=== PATIENT | female | born 1960 | race African-American/Black ===

== ENCOUNTER → 2017-08-14 | Outpatient (CLI) | payer OTHER ==
[~2017-08-14] VITALS: Ht 167.6 cm; Wt 125.6 kg
[~2017-08-14] MED LIST: AMITRIPTYLINE H10 M3 PO; ATENOLOL 100MG100 MG PO; CYMBALTA30 MG PO; FLEXERIL PO; HARVONI 90-4001 EACH PO; HYDROCODON-ACE1 EAC5 PO; HYDROCODONE-AP1 EAC6 PO; LISINOPRIL10 MG PO; LITE COAT ASPI325 MG PO; MOBIC7.5 MG PO; TRIAMTERENE-HC1 EAC3 PO; XANAX 0.25 MG0.25 MG PO
--- NOTE | ~2017-08-14 | HPC ---
[facility] [place] [address] PAIN MANAGEMENT CONSULTATION Name: ALFRED METZ [id number] Admission: 08/14/17 Attend Phys: Diana Jhaveri MD Discharge: Date of : 64 Report #: [id number] THIS REPORT FOR: //name// CC: JOSHUA Jhaveri DATE OF SERVICE: 08/14/2017 CHIEF COMPLAINT: Right hip and leg pain. HISTORY OF PRESENT ILLNESS: The patient is a 56-year-old female who has been referred to the pain clinic for evaluation of pain, which is described as burning, tingling, pulling and painful radiating down into her right leg. She notes that the pain is worse with walking and standing. Pain improves with sitting and resting. She describes it as continuous, steady, constant, burning, shooting, cramping, aching, pulling, throbbing, pounding and sharp and rates it as a 9/10. She has not had surgery in the past. 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 She states that her blood studies are okay and that she is not having any problems with platelets. She notes that her pain has worsened over the past 2 months. She is told that she has some narrowing in her low back. This is seen on an MRI. She denies any significant bowel or bladder dysfunction because of this. ALLERGIES: SHRIMP, PENICILLIN, AND SULFA. MEDICATIONS: Hydrocodone 5/325, Cymbalta 30 mg daily, Xanax 0.25 mg daily, lisinopril 10 mg daily, triamterene/hydrochlorothiazide 75/50, Flexeril 10 mg t.i.d., Tenormin 100 mg daily. Unable to tolerate nonsteroidal anti-inflammatory secondary to increased creatinine. No use of Tylenol secondary to hepatitis C. Gabapentin caused swelling in the hands. PAST MEDICAL HISTORY: Hepatitis C, hyperlipidemia, hypertension, thrombotic thrombocytopenia purpura status post splenectomy, liver disease, joint disease/arthritis. PAST SURGICAL HISTORY: Splenectomy for thrombotic thrombocytopenic purpura 30 years ago. REVIEW OF SYSTEMS: Generally good health, some problems with constipation, depression, insomnia, otherwise unremarkable. 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 Denies use of alcoholic beverages other than on occasion. Does smoke cigarettes and smoked off and on since age 37. [facility] [address] [place] [address] PAIN MANAGEMENT CONSULTATION Name: ALFRED METZ Room #: REG [facility]#: [id number] Admission: 08/14/17 Attend Phys: Diana Jhaveri MD Discharge: Date of : 64 Report #: [id number] FAMILY HISTORY: Mother has diabetes, heart failure, heart attack at age 62, hypertension. Father, diabetes and hypertension at age 62, heart disease, diabetes. Diabetes in her brother. Hypertension and a seizure in brother. PHYSICAL EXAMINATION: Blood pressure 156/104, pulse 79, respiratory rate 16, room air saturation 97%. Height 167 cm, weight 125 kilograms. BMI is 44. The patient has pain and discomfort in the lower portion of her back with pain radiating down the right hip, right leg and right buttocks. She has a positive straight leg raise. Notes cramping, burning, shooting, aching pain and rates it as 9/10. She notes problems with walking and exacerbation of her pain upon standing. LABORATORY DATA: MRI of the lumbar spine dated 06/28/2017 reveals 5 mm grade 1 anterolisthesis at L4-L5 with additional degenerative changes. Moderate left and mild right neural foramina and mild central canal narrowing. Multilevel degenerative disk with facet disease, most prominent at L5-S1 with severe left and moderate right neural foraminal stenosis. RECOMMENDATIONS: We will proceed with an epidural steroid injection. Risks and benefits of an epidural steroid injection were discussed. Possible complications were reviewed. The patient elects to proceed. PROCEDURE NOTE: The patient was placed in the prone position. Her back was sterilely prepped with Betadine solution at L4-L5 and 0.25% bupivacaine was infiltrated. A 17-gauge Tuohy needle with loss of resistance technique was used to gain access to the epidural space. A total of 80 mg Depo-Medrol, 40 mg triamcinolone and 2 mL of 0.25% bupivacaine was injected. The patient tolerated the procedure well. Her pain decreased to 2 at the time of discharge. She will follow up in the future as needed. We would like to thank you for letting us participate in her care. We hope she continues to improve By: 0837 0014 Diana Jhaveri MD /[facility]
[2017-08-14 10:59] VITALS: BP 156/104
== END | disposition home or self-care (01) ==
LOC: PAIN 07:25
DX: M54.16 Radiculopathy, lumbar region (principal); Z68.41 Body mass index [BMI] 40.0-44.9, adult; Z87.891 Personal history of nicotine dependence; E78.5 Hyperlipidemia, unspecified; I10 Essential (primary) hypertension; M19.90 Unspecified osteoarthritis, unspecified site; M31.1 Thrombotic microangiopathy; Z98.890 Other specified postprocedural states

== ENCOUNTER → 2017-08-28 | Outpatient (CLI) | payer OTHER ==
[~2017-08-28] VITALS: Ht 167.6 cm; Wt 129.7 kg
[~2017-08-28] MED LIST changes: +METHADONE HCL 110 M1 PO
--- NOTE | ~2017-08-28 | HPC ---
[facility] [address] [place] [address] PAIN MANAGEMENT CONSULTATION Name: ALFRED METZ Room #: REG [facility]#: [id number] Admission: 08/28/17 Attend Phys: Diana Jhaveri MD Discharge: Date of : 64 Report #: [id number] THIS REPORT FOR: //name// CC: JOSHUA Jhaveri DATE OF SERVICE: 08/28/2017 FOLLOWUP COMPLAINT: Pain in the lower back and down into the back of the leg, had some muscle spasms. FOLLOWUP HISTORY: The patient is a 56-year-old female who has been seen in the pain clinic because of lumbar radiculopathy. She has undergone an epidural steroid injection because of pain and discomfort radiating down into the right leg lateral side of the leg and down into the area of her foot. She rates her pain as a 10+. She notes that the pain continues to be quite problematic. Ambulation is problematic. She has noted pain continues to be problematic over the last 3 months. She describes it as burning, shooting, aching, cramping, throbbing pounding, and sharp. Pain is worsened by walking and standing. Sitting can be helpful. Sometimes rest is what eliminates the pain. PHYSICAL EXAMINATION: Blood pressure 160/104, respiratory rate 22, pulse 76, saturations 100. The patient has pain and discomfort radiating down into the right leg, lateral portion of her buttocks and down lateral thigh involving the L4-L5 distribution. IMPRESSION: Lumbar radiculopathy. RECOMMENDATIONS: We discussed treatment options with the patient. Risks and benefits of an epidural steroid injection were reviewed. Possible complications were discussed. The patient elects to proceed with an epidural steroid injection. Risks and benefits were again reviewed and the patient agrees to proceed. PROCEDURE NOTE: The patient was placed in the prone position. Fluoroscopy was used to identify the L4-L5 interspace. This area had been sterilely prepped with Betadine and infiltrated with 0.25% bupivacaine. Total of 80 mg of Depo-Medrol, 40 mg of triamcinolone and 2 mL of 0.25% bupivacaine was injected. The patient tolerated the procedure well. There were no complications. Her pain decreased to 0 at the time of discharge. She will follow up in the future as needed. [address] [address] PAIN MANAGEMENT CONSULTATION Name: ALFRED METZ Room #: REG [facility] [place]#: [id number] Admission: 08/28/17 Attend Phys: Diana Jhaveri MD Discharge: Date of : 64 Report #: [id number] We would like to thank you for letting us participate in her care. We hope she continues to improve. By: 1359 0110 Diana Jhaveri MD /PMT
--- NOTE | ~2017-08-28 | HPC ---
[facility] [place] [address] [address] PAIN MANAGEMENT CONSULTATION Name: ALFRED METZ [facility] [id number] Admission: 08/28/17 Attend Phys: Diana Jhaveri MD Discharge: Date of : 64 Report #: [id number] THIS REPORT FOR: //name// CC: JOSHUA Jhaveri DATE OF SERVICE: 08/28/2017 FOLLOWUP COMPLAINT: Here for treatment, pain still going down the right leg. FOLLOWUP HISTORY: The patient is a 56-year-old female who has been seen in the pain clinic because of lumbar radiculopathy. She underwent an epidural steroid injection at the last visit. She noted some improvement, but her pain continues to be problematic. She notes that after prolonged sitting at her desk, she is experiencing muscle spasms, having pain radiating down into her leg, which can be quite problematic. She rates it as a 10+ today. She has had no complications from the last injection. She finds that hydrocodone, Elavil and meloxicam are somewhat helpful, but pain continues to be problematic. She finds that BC powders are helpful with the pain. PHYSICAL EXAMINATION: Blood pressure 145/101, respiratory rate 18, room air saturation is 100, respiratory rate 16. The patient has pain and discomfort radiating down into the L5-S1 distribution of her right leg. RECOMMENDATION: We discussed the treatment options. Risks and benefits of an epidural steroid injection were again reviewed. Possible complications were discussed. The patient elects to proceed with another injection. PROCEDURE NOTE: The patient was placed in the prone position. Her back was sterilely prepped with a Betadine solution. 0.25% bupivacaine was infiltrated. A 17-gauge Tuohy with loss of resistance technique was used to gain access to the epidural space. There was no CSF, heme or paresthesia. Total of 80 mg of Depo-Medrol, 40 mg triamcinolone and 2 mL of 0.25% bupivacaine was injected. The patient's pain decreased to 0 at the time of discharge. She will follow up in the future as needed. We would like to thank you for letting us participate in her care. The patient will be given methadone 10 mg 1 p.o. every day to help with pain. She finds it very difficult to sit and had to miss work one day this week because the pain was so intense. By: 1354 0104 Diana Jhaveri MD /[place]
[2017-08-28 12:34] VITALS: BP 160/104
== END | disposition home or self-care (01) ==
LOC: PAIN 07:10
DX: M54.16 Radiculopathy, lumbar region (principal); G89.29 Other chronic pain; F17.210 Nicotine dependence, cigarettes, uncomplicated; Z88.0 Allergy status to penicillin; Z88.2 Allergy status to sulfonamides; Z79.82 Long term (current) use of aspirin; Z79.899 Other long term (current) drug therapy; Z98.890 Other specified postprocedural states

== ENCOUNTER → 2017-09-06 | Outpatient (CLI) | payer OTHER ==
[~2017-09-06] VITALS: Ht 167.6 cm; Wt 127.0 kg
[~2017-09-06] MED LIST changes: +ALEVE220 MG PO
--- NOTE | ~2017-09-06 | HPC ---
[facility] [place] [address] [place] [address] PAIN MANAGEMENT CONSULTATION Name: ALFRED METZ Room #: REG [facility].#: [id number] Admission: 09/06/17 Attend Phys: Diana Jhaveri MD Discharge: Date of : 64 Report #: [id number] THIS REPORT FOR: //name// CC: Alivia Jhaveri DATE OF SERVICE: 10/29/2017 FOLLOWUP COMPLAINT: Continued pain in the lower back with pain radiating down into the right leg. HISTORY OF PRESENT ILLNESS: The patient is a 56-year-old female who has been followed in the pain clinic because of lumbar radiculopathy. She continues to have pain and discomfort, which she describes as quite problematic radiating down into her right leg. She notes some aching, numbness, weakness in this area and rates her pain as a 10. She has undergone epidural steroid injections in the past and gleaned some benefit from it, but continues to find that the pain is still quite problematic. Walks with an antalgic gait and has pain in the lateral portion of her buttock and pain radiating down to the L5-S1 distribution today. IMPRESSION: Lumbar radiculopathy, L5-S1 distribution, per her description today. RECOMMENDATIONS: We discussed treatment options with the patient. Risks and benefits of the procedure were again reviewed. They were but are not limited to infection, increased muscle soreness, headache, bleeding, nerve damage. The patient elects to proceed. PROCEDURE NOTE: The patient was placed in the prone position. Fluoroscopy was used to identify the L5-S1 area. This area had been sterilely prepped with Betadine and infiltrated with 0.25% bupivacaine. Total of 80 mg Depo-Medrol, 40 mg triamcinolone and 2 mL of 0.25% bupivacaine was injected. A total of 14 seconds fluoroscopy time was used. The patient tolerated the procedure well. She was taken to the recovery room where she rested until she was able to be discharged without problem. The patient will be given a trial of methadone for the next month to note its efficacy in helping to decrease her pain and discomfort. Rates her pain as 0 at the time of departure. <ELECTRONICALLY SIGNED> By: Diana Jhaveri MD 10/31/17 0945 1402 1833 Diana Jhaveri MD /[facility]
[2017-09-06 10:51] VITALS: BP 145/101
== END | disposition home or self-care (01) ==
LOC: PAIN 08:18
DX: M54.16 Radiculopathy, lumbar region (principal); F17.210 Nicotine dependence, cigarettes, uncomplicated

== ENCOUNTER → 2017-10-31 | Outpatient (CLI) | payer OTHER ==
[~2017-10-31] VITALS: Ht 167.6 cm; Wt 127.5 kg
--- NOTE | ~2017-10-31 | HPC ---
[facility] [place] [address] PAIN MANAGEMENT CONSULTATION Name: ALFRED METZ [facility] [id number] Admission: 10/31/17 Attend Phys: Everette Castellano DO Discharge: Date of : 64 Report #: [id number] THIS REPORT FOR: //name// CC: PANCHO Castellano The patient is a pleasant 56-year-old female, had been treated by Dr. Tobin Jhaveri for lumbar radiculopathy and axial back pain. He had a series of epidural injections with nominal efficacy. He was referred to Dr. Pancho Huynh's office, saw Ally Padgett. She did send the patient back with a specific request for: 1. L4-L5 bilateral facet joint injections. 2. Right L4 selective nerve root block. The patient returns to pain clinic today. I saw her on 10/21/2017. We did bilateral L4-L5 facet joint injection under fluoroscopy. It is important to note the patient reported absolute pain relief following this injection. Pain was 0 on discharge that lasted about an hour. Symptoms did come back. Today, she is frustrated and tearful. She notes she simply cannot go with ongoing pain. She has pain across the low back with paresthesia in the right leg. Curiously, even the tingling in the right leg was improved with the bilateral facet joint injection. Physical exam is unchanged today, subjective pain score of 4-5 on a VAS. She is using a walker to get around due to insecurity sitting on the right leg, though it has not given out. Lower extremity strength is diminished, but symmetric. Does have some pain across the low back, exacerbated with rotating and side bending. Straight leg raise is equivocal on the right. ASSESSMENT: Symptomatic lumbar radiculopathy, axial back pain, a definite component of lumbar spondylosis. RECOMMENDATION: We will perform the second requested procedure, right selective nerve root block today. We will do this without benefit of steroid. PROCEDURE: Right L4 selective nerve root block. PROCEDURE NOTE: After written informed consent was obtained, the patient was taken to fluoroscopy suite, placed in prone position with sterile prep and drape, skin was raised. A 22-gauge stylet needle was placed from a right paramedian approach to contact the superior aspect of the right L4-L5 neural foramen. AP and lateral projections showed needle immediately outside of the foramen. No contrast was used due to IODINE CONTRAST ALLERGY, but AP and lateral [address] [address] PAIN MANAGEMENT CONSULTATION Name: ALFRED METZ Room #: REG [facility]#: [id number] Admission: 10/31/17 Attend Phys: Everette Castellano DO Discharge: Date of : 64 Report #: [id number] projections inferred good needle placement. 1 mL of 1.5% preservative-free bupivacaine with 1:200,000 epinephrine was injected. The patient was monitored for an appropriate period of time, discharged in good and stable condition. She had nominal change in her symptoms. We will refer the patient back to Dr. Huynh's office. It appears that a component of pain is mediated from the L4-L5 facets. Does have an ongoing radicular component in the right leg. May benefit from L4-L5 fusion (? ). Thank you for allowing me to participate in the patient's care. By: 0635 1004 Everette Castellano DO /nt
[2017-10-31 15:22] VITALS: BP 155/97
== END | disposition home or self-care (01) ==
LOC: PAIN 07:19
DX: M47.26 Other spondylosis with radiculopathy, lumbar region (principal); F17.200 Nicotine dependence, unspecified, uncomplicated; Z98.890 Other specified postprocedural states; Z88.0 Allergy status to penicillin; Z88.2 Allergy status to sulfonamides; Z79.899 Other long term (current) drug therapy

== ENCOUNTER → 2019-04-09 | Outpatient (CLI) | payer OTHER ==
[~2019-04-09] MED LIST changes: +NORCO 5-325 TA1 EACH PO
== END ==
LOC: RAD 13:33
DX: Z12.31 Encounter for screening mammogram for malignant neoplasm of breast (principal)

== ENCOUNTER 2019-05-20 06:47 | Emergency (ER) | payer OTHER ==
[~2019-05-20] VITALS: Ht 167.6 cm; Wt 113.4 kg
[2019-05-20 06:50] VITALS: BP 125/65
[2019-05-20] MEDS ORDERED: KEFLEX500 M1 PO (07:53)
== END 2019-05-20 07:52 | disposition home or self-care (01) ==
LOC: ER 06:47
DX: L03.116 Cellulitis of left lower limb (principal); L53.9 Erythematous condition, unspecified; F17.210 Nicotine dependence, cigarettes, uncomplicated; Z88.0 Allergy status to penicillin; Z91.013 Allergy to seafood; Z88.2 Allergy status to sulfonamides; Z90.81 Acquired absence of spleen

== ENCOUNTER → 2019-07-27 | Outpatient (CLI) | payer OTHER ==
[~2019-07-27] MED LIST changes: +KEFLEX500 M1 PO
== END ==
LOC: MRI 06:53
DX: M43.16 Spondylolisthesis, lumbar region (principal); M47.816 Spondylosis without myelopathy or radiculopathy, lumbar region; M47.817 Spondylosis without myelopathy or radiculopathy, lumbosacral region; M48.04 Spinal stenosis, thoracic region; M51.24 Other intervertebral disc displacement, thoracic region; M51.34 Other intervertebral disc degeneration, thoracic region; M48.062 Spinal stenosis, lumbar region with neurogenic claudication; M46.06 Spinal enthesopathy, lumbar region; M51.27 Other intervertebral disc displacement, lumbosacral region

== ENCOUNTER 2019-12-28 07:39 | Emergency (ER) | payer OTHER ==
[~2019-12-28] VITALS: Ht 167.6 cm; Wt 126.1 kg
[2019-12-28 08:17] VITALS: BP 127/74
[2019-12-28] MEDS ORDERED: FLONASE 0.05%50 MCG NARES (08:17)
== END 2019-12-28 08:17 | disposition home or self-care (01) ==
LOC: ER 07:39
DX: J02.9 Acute pharyngitis, unspecified (principal); R09.81 Nasal congestion; I10 Essential (primary) hypertension; I25.2 Old myocardial infarction; F17.210 Nicotine dependence, cigarettes, uncomplicated; Z86.73 Personal history of transient ischemic attack (TIA), and cerebral infarction without residual deficits; Z90.81 Acquired absence of spleen; Z88.2 Allergy status to sulfonamides; Z88.0 Allergy status to penicillin; Z91.018 Allergy to other foods

== ENCOUNTER → 2020-05-04 | Outpatient (CLI) | payer OTHER ==
[~2020-05-04] MED LIST changes: +FLONASE 0.05%50 MCG NARES
== END ==
LOC: RAD 09:53
PROVIDERS: ATTEND Family Medicine
DX: Z12.31 Encounter for screening mammogram for malignant neoplasm of breast (principal)

== ENCOUNTER → 2020-05-11 | Outpatient (CLI) | payer OTHER | LOC: ULTRA 07:23 | DX: N60.01 Solitary cyst of right breast (principal); R92.2 Inconclusive mammogram ==

== ENCOUNTER → 2020-08-03 | Outpatient (CLI) | payer OTHER ==
[2020-08-03 08:33] LABS: HEMOGLOBIN 13.2 gm/dL (12.0-15.0); MCH 29.8 pg (26.0-34.0); MCHC 32.3 g/dL (28.0-37.0); MCV 92.3 fL (80.0-100.0); RBC 4.43 mil/uL (4.20-5.00); RDW 14.3 % (10.5-14.5); WBC 13.5 thou/uL (4.0-11.0)
[2020-08-03 08:54] LABS: ALBUMIN 3.4 g/dL (3.4-5.0); ANION GAP 9 mmol/L (7-16); BUN 22 mg/dL (7-18); CALCIUM 9.2 mg/dL (8.5-10.1); CHLORIDE 105 mmol/L (98-107); CHOLESTEROL 127 mg/dL (<200); CO2 27 mmol/L (21-32); CREATININE 1.3 mg/dL (0.6-1.0); GLUCOSE 136 mg/dL (74-106); HDL CHOLESTEROL 42 mg/dL (>40); LDL CHOLESTEROL 73 mg/dL (<100); POTASSIUM 4.8 mmol/L (3.5-5.1); SGOT 12 U/L (15-37); SGPT 28 U/L (30-65); SODIUM 141 mmol/L (136-145); TOTAL BILIRUBIN 0.4 mg/dL (0.2-1.0); TOTAL PROTEIN 6.9 g/dL (6.4-8.2); TRIGLYCERIDE 61 mg/dL (<150); VLDL 12 mg/dL (<40)
[2020-08-04 04:07] LABS: GLYCOHEMOGLOBIN (HGB A1C) 5.8 % (4.8-5.6)
== END ==
LOC: LABMALL 07:01
PROVIDERS: ATTEND Family Medicine
DX: E78.5 Hyperlipidemia, unspecified (principal)

== ENCOUNTER → 2020-09-24 | Outpatient (CLI) | payer OTHER ==
[~2020-09-24] MED LIST changes: +ASA81BEC PO; +CARVEDILOL25 MG PO; +FUROSEMIDE 20 M20 MG PO; +HYDRALAZINE 5050 MG PO; +KLOR-CON M1010 MEQ PO; +LIPITOR 40 MG T40 M1 PO; +LISINOPRIL40 MG PO; +NORVASC5 MG PO; +PANTOPRAZOLE SO20 MG PO; +PLAVIX 75 MG TA75 MG PO; +SPIRONOLACTONE25 MG PO; +TYLENOL ARTHRI650 MG PO; +VITAMIN D21250 MC1 PO
== END ==
LOC: LAB 09-23 14:34
PROVIDERS: ATTEND Student in an Organized Health Care Education/Training Program
DX: Z20.828 Contact with and (suspected) exposure to other viral communicable diseases (principal)

== ENCOUNTER 2020-09-28 07:42 | Inpatient (IN) | payer OTHER ==
[~2020-09-28] VITALS: Ht 167.6 cm; Wt 134.7 kg
[2020-09-28 08:27] LABS: HEMATOCRIT 45.2 % (37.0-47.0); HEMOGLOBIN 14.5 gm/dL (12.0-15.0); MCH 30.2 pg (26.0-34.0); MCHC 32.2 g/dL (28.0-37.0); MCV 93.7 fL (80.0-100.0); RBC 4.82 mil/uL (4.20-5.00); RDW 14.5 % (10.5-14.5); WBC 17.4 thou/uL (4.0-11.0)
[2020-09-28 08:38] VITALS: BP 147/88
[2020-09-28 09:10] LABS: ALBUMIN 3.5 g/dL (3.4-5.0); CALCIUM 9.2 mg/dL (8.5-10.1); CREATININE 1.4 mg/dL (0.6-1.0); POTASSIUM 3.2 mmol/L (3.5-5.1); TOTAL BILIRUBIN 0.5 mg/dL (0.2-1.0); TOTAL PROTEIN 7.2 g/dL (6.4-8.2)
--- NOTE | 2020-09-28 14:38 | EKG ---
[facility] [address] ELECTROCARDIOGRAM REPORT Name: ALFRED METZ Room #: 150-3 ADM IN M.R.#: [id number] Admission: 09/28/20 Attend Phys: Walter Givens MD Discharge: Date of : 64 Report #: [id number] THIS REPORT FOR: cc: Susanna Menon MD, Margaret A. 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 : 1960 Requested By: Walter Givens Order Number: [id number] MD: Sawyer Marte Measurements Intervals [place] Rate: 67 P: 71 PA: 64 QRS: 20 QRSD: 88 T: 10 QT: 404 QTc: 427 Interpretive Statements Sinus rhythm Short PA interval Low voltage, precordial leads Baseline wander in lead(s) I,II,aVR No previous ECG available for comparison Electronically Signed On 09-28-2020 14:37:50 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
[2020-09-28 15:50] VITALS: BP 149/80
[2020-09-28 16:30] VITALS: BP 139/76
[2020-09-28 19:34] VITALS: BP 135/83
--- NOTE | 2020-09-28 19:46 | NUR ---
Admitted from ER, s/p gastric bypass; transferred to bed safely. A+Ox4. On room air. Vital signs stable. On telemetry; no complains and signs of chest pain, crushing sensation and heaviness. Om nothing per orem- pt informed and aware, mouth swabs provided. No nausea, no vomiting and no abdominal pain noted. With 4 lap sites with dermabond; C/D/I, no bleeding and drainage noted. Assisted in ADLs. With dickerson in place; draining well; output measured and recorded accordingly. With SL at R arm- 1/2NS at 125cc/hr, infusing well. With CALISTA hose and SCDs on. With son at bedside- update given. Admission assessment, history and education done; admission forms signed at OR. On blood sugar monitoring, taken and recorded while on NPO. Pt able to walk around the hallway 4x using walker and gait belt, standby assist; no complains of pain made. Night RN informed pt to ambulate q2 while awake on the day of surgery. To continue monitoring patient.
[2020-09-29 00:47] VITALS: BP 121/76
--- NOTE | 2020-09-29 03:38 | NUR ---
ASSUMED PT CARE AROUND 1930. AXOX4. PLEASANT. AMBULATED AROUND UNIT WELL. PEDROZA INTACT. VSS. NO S/S ACUTE DISTRESS NOTED OR REPORTED AT THIS TIME. WILL CONT TO MONITOR FOR ANY CHANGES IN CONDITION.
[2020-09-29 04:06] LABS: GLYCOHEMOGLOBIN (HGB A1C) 5.4 % (4.8-5.6)
[2020-09-29 05:41] VITALS: BP 125/50
[2020-09-29 06:01] LABS: HEMATOCRIT 40.6 % (37.0-47.0); HEMOGLOBIN 12.9 gm/dL (12.0-15.0); MCH 30.3 pg (26.0-34.0); MCHC 31.7 g/dL (28.0-37.0); MCV 95.6 fL (80.0-100.0); RBC 4.25 mil/uL (4.20-5.00); RDW 14.9 % (10.5-14.5); WBC 27.6 thou/uL (4.0-11.0)
[2020-09-29 06:13] LABS: ALBUMIN 2.9 g/dL (3.4-5.0); CALCIUM 8.2 mg/dL (8.5-10.1); CREATININE 1.3 mg/dL (0.6-1.0); POTASSIUM 3.6 mmol/L (3.5-5.1); TOTAL BILIRUBIN 0.4 mg/dL (0.2-1.0); TOTAL PROTEIN 6.2 g/dL (6.4-8.2)
--- NOTE | 2020-09-29 11:23 | NUR ---
ASSUMED CARE AT 0700 THIS MORNING. PT. SITTING UP IN HER BED. SHE IS DENYING PAIN AT THIS TIME. ASSESSMENT WAS UNREMARKABLE. SCD IS ON. SHE AMBLUATED THIS MORNING. SHE HAS A TELE MONITORY SHOWING NSR. SHE HAS A PEDROZA. IT IS PATENT. TODAY SHE HAS A CLEAR LIQUID DIET. SHE IS PLEASANT AND COOPERATIVE WITH STAFF. SHE HAS NOT REQUESTED A PRN PAIN MEDICATION AT THIS TIME.
[2020-09-29 12:56] VITALS: BP 118/77
[2020-09-29 12:57] VITALS: BP 114/65
[2020-09-29 17:18] VITALS: BP 130/78
[2020-09-29 19:26] VITALS: BP 125/80
[2020-09-30 03:57] VITALS: BP 136/85
--- NOTE | 2020-09-30 05:40 | NUR ---
AXOX4. PLEASANT. CALLS APPROPRIATELY FOR HELP. VSS. NO S/S ACUTE DISTRESS NOTED OR REPORTED AT THIS TIME. WILL CONT TO MONITOR FOR ANY CHANGES IN CONDITION.
[2020-09-30 07:31] VITALS: BP 135/92
[2020-09-30 13:39] LABS: HEMATOCRIT 40.7 % (37.0-47.0); HEMOGLOBIN 12.9 gm/dL (12.0-15.0); MCH 30.2 pg (26.0-34.0); MCHC 31.8 g/dL (28.0-37.0); MCV 94.9 fL (80.0-100.0); RBC 4.28 mil/uL (4.20-5.00); RDW 14.4 % (10.5-14.5); WBC 23.9 thou/uL (4.0-11.0)
[2020-09-30 13:57] LABS: ALBUMIN 2.6 g/dL (3.4-5.0); CALCIUM 8.7 mg/dL (8.5-10.1); CREATININE 1.1 mg/dL (0.6-1.0); PHOSPHORUS 2.6 mg/dL (2.5-4.9); POTASSIUM 4.2 mmol/L (3.5-5.1)
[2020-09-30 15:15] VITALS: BP 143/85
[2020-09-30 20:01] VITALS: BP 147/91
--- NOTE | 2020-10-01 04:09 | NUR ---
ELEVATED BP NOTED. 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 NO S/S ACUTE DISTRESS NOTED OR REPORTED AT THIS TIME. WILL CONT TO MONITOR FOR ANY CHANGES IN CONDITION.
[2020-10-01 08:08] VITALS: BP 129/83
--- NOTE | 2020-10-01 11:04 | NUR ---
Received awake on bed. Due medications given as prescribed, able to swallow meds w/o difficulty. On room air. Vital signs stable. On telemetry; no complains of chest pain, crushing sensation and heaviness. On gastric sleeve diet- tolerating well; no nausea, no vomiting and no abdominal pain noted. Assisted in ADLs. Falls bundle in place. Complained of pain, due PRN pain meds given as prescribed. With SL at R FA- intact and flushing well. Encouraged and assisted in ambulating; using walker and gait belt; falls bundle in place. Possible discharge today, a/w physician's rounds- pt updated. To continue monitoring patient.
[2020-10-01 12:31] VITALS: BP 129/83
[2020-10-01 13:00] VITALS: BP 131/72
== END 2020-10-01 14:24 | disposition home or self-care (01) | DRG 336 ==
LOC: TBA 07:42 → PRE 11:40 → 4W 15:38
PROVIDERS: Surgery; ADMIT Surgery; ATTEND Surgery
PROC: 0DNW4ZZ Release Peritoneum, Percutaneous Endoscopic Approach (ICD-10-PCS; principal; 2020-09-28)
PROC: 0DJ08ZZ Inspection of Upper Intestinal Tract, Via Natural or Artificial Opening Endoscopic (ICD-10-PCS; principal; 2020-09-28)
DX: K66.0 Peritoneal adhesions (postprocedural) (postinfection) (principal); Z68.42 Body mass index [BMI] 45.0-49.9, adult; E66.01 Morbid (severe) obesity due to excess calories; Z88.0 Allergy status to penicillin; Z88.2 Allergy status to sulfonamides; Z88.8 Allergy status to other drugs, medicaments and biological substances; Z79.899 Other long term (current) drug therapy
CPT/HCPCS: 10045; 10047; 50010; 50101; 50222; 50386; 50455; 50555; 50558; 50739; 50740; 51489; 52265; 52266; 53307; 54022; 54118; 56462; 56525; 56526; 56531; 57092; 62110; 62900; 70005

== ENCOUNTER → 2021-02-13 | Outpatient (CLI) | payer OTHER ==
[2021-02-13 08:47] LABS: ABSOLUTE NEUTROPHILS 8.5 thou/uL (1.4-8.2); BASOPHILS 1.3 % (0.0-2.0); EOSINOPHILS 0.3 % (0.0-3.0); HEMATOCRIT 45.7 % (37.0-47.0); HEMOGLOBIN 14.5 gm/dL (12.0-15.0); LYMPHOCYTES 24.8 % (24.0-44.0); MCH 29.3 pg (26.0-34.0); MCHC 31.7 g/dL (28.0-37.0); MCV 92.4 fL (80.0-100.0); MONOCYTES 9.6 % (1.0-8.0); PLATELET COUNT 280 thou/uL (150-400); RBC 4.94 mil/uL (4.20-5.00); RDW 14.7 % (10.5-14.5); WBC 13.2 thou/uL (4.0-11.0)
[2021-02-13 09:02] LABS: % SATURATION 33 % (20-39); IRON 104 ug/dL (50-170); TIBC 312 ug/dL (250-450)
[2021-02-13 09:04] LABS: ALBUMIN 3.4 g/dL (3.4-5.0); ANION GAP 9 mmol/L (7-16); BUN 14 mg/dL (7-18); CALCIUM 9.2 mg/dL (8.5-10.1); CHLORIDE 109 mmol/L (98-107); CHOLESTEROL 114 mg/dL (<200); CO2 26 mmol/L (21-32); CREATININE 1.1 mg/dL (0.6-1.0); GLUCOSE 127 mg/dL (74-106); HDL CHOLESTEROL 38 mg/dL (>40); LDL CHOLESTEROL 57 mg/dL (<100); POTASSIUM 3.7 mmol/L (3.5-5.1); SGOT 16 U/L (15-37); SGPT 32 U/L (30-65); SODIUM 144 mmol/L (136-145); TOTAL BILIRUBIN 0.6 mg/dL (0.2-1.0); TOTAL PROTEIN 6.5 g/dL (6.4-8.2); TRIGLYCERIDE 99 mg/dL (<150); VLDL 20 mg/dL (<40)
[2021-02-13 10:03] LABS: FOLIC ACID 13.8 ng/mL (8.6-58.9)
[2021-02-13 23:06] LABS: GLYCOHEMOGLOBIN (HGB A1C) 6.2 % (4.8-5.6)
== END ==
LOC: LAB 07:57
PROVIDERS: ATTEND Surgery
DX: Z98.84 Bariatric surgery status (principal)

== ENCOUNTER → 2021-05-30 | Outpatient (CLI) | payer OTHER | LOC: RAD 10:25 | PROVIDERS: ATTEND Family Medicine | DX: Z12.31 Encounter for screening mammogram for malignant neoplasm of breast (principal) ==

== ENCOUNTER → 2021-10-30 | Outpatient (CLI) | payer OTHER ==
[2021-10-30 09:00] LABS: ABSOLUTE NEUTROPHILS 6.7 thou/uL (1.4-8.2); BASOPHILS 0.6 % (0.0-2.0); EOSINOPHILS 1.1 % (0.0-3.0); HEMATOCRIT 43.6 % (37.0-47.0); HEMOGLOBIN 13.7 gm/dL (12.0-15.0); LYMPHOCYTES 29.1 % (24.0-44.0); MCH 30.1 pg (26.0-34.0); MCHC 31.4 g/dL (28.0-37.0); MCV 95.6 fL (80.0-100.0); MONOCYTES 12.6 % (1.0-8.0); PLATELET COUNT 266 thou/uL (150-400); POLYS 56.6 % (36.0-66.0); RBC 4.56 mil/uL (4.20-5.00); RDW 14.1 % (10.5-14.5); WBC 11.8 thou/uL (4.0-11.0)
[2021-10-30 09:18] LABS: % SATURATION 36 % (20-39); IRON 103 ug/dL (50-170); TIBC 290 ug/dL (250-450)
[2021-10-30 09:23] LABS: ALBUMIN 3.2 g/dL (3.4-5.0); ANION GAP 11 mmol/L (7-16); BUN 13 mg/dL (7-18); CALCIUM 9.2 mg/dL (8.5-10.1); CHLORIDE 109 mmol/L (98-107); CHOLESTEROL 117 mg/dL (<200); CO2 28 mmol/L (21-32); CREATININE 1.1 mg/dL (0.6-1.0); GLUCOSE 112 mg/dL (74-106); HDL CHOLESTEROL 45 mg/dL (>40); LDL CHOLESTEROL 59 mg/dL (<100); POTASSIUM 3.5 mmol/L (3.5-5.1); SGOT 20 U/L (15-37); SGPT 26 U/L (30-65); SODIUM 148 mmol/L (136-145); TC:HDL 2.6 Ratio (Not establshd); TOTAL BILIRUBIN 0.7 mg/dL (0.2-1.0); TOTAL PROTEIN 6.6 g/dL (6.4-8.2); TRIGLYCERIDE 66 mg/dL (<150); VLDL 13 mg/dL (<40)
[2021-10-30 23:06] LABS: GLYCOHEMOGLOBIN (HGB A1C) 5.3 % (4.8-5.6)
[2021-10-31 15:08] LABS: 25-HYDROXY TOTAL 37.8 ng/mL (30.0-100.0)
== END ==
LOC: LAB 07:49
DX: I10 Essential (primary) hypertension (principal); M54.9 Dorsalgia, unspecified; G47.33 Obstructive sleep apnea (adult) (pediatric); Z98.84 Bariatric surgery status; Z79.899 Other long term (current) drug therapy